=== PATIENT | male | born 1975 ===

== ENCOUNTER 2017-05-10 16:37 | Emergency (ER) | payer OTHER ==
--- NOTE | 2017-05-10 17:02 | C.PDOC ---
History Of Present Illness 41 y/o M p/w L knee pain suffered prior to arrival. Patient states he was kneeling down next to his car working on his tire and when he got up, he felt a tension in his L knee and now he can not straighten his L knee due to pain. He denies any direct trauma. He states he had meniscal surgery in this knee in the past and it was never the same since. He hears and feels clicks in the knee daily. Denies numbness, weakness. Time Seen by Provider: 05/10/17 16:56 Chief Complaint (Nursing): Lower Extremity Problem/Injury Past Medical History Vital Signs: Last Vital Signs Temp 98.3 F 05/10/17 16:41 Pulse 74 05/10/17 16:41 Resp 20 05/10/17 16:41 BP 113/73 05/10/17 16:41 Pulse Ox 97 05/10/17 17:02 Family History: States: No Known Family Hx Review Of Systems Except As Marked, All Systems Reviewed And Found Negative. Constitutional: Negative for: Fever Respiratory: Negative for: Shortness of Breath Physical Exam - Physical Exam Additional Physical Exam Comments: Gen: No acute distress. Extremities: L knee with lateral and medial tenderness with joint effusion. Able to flex fully. Able to extend with pain. Straight leg raise intact. Negative anterior/posterio drawer tests. No tib/fib or femoral tenderness. Sensation to light touch intact in leg. ED Course And Treatment O2 Sat by Pulse Oximetry: 97 Medical Decision Making Medical Decision Making: Toradol for pain. XR. XR no acute fx or dislocation. Knee brace, crutches. F/u Ortho, return to ER for worsening pain, numbness, or any other problem. Disposition - Disposition Referrals: Elijah Linder III, MD [Staff Provider] - Disposition: HOME/ ROUTINE Disposition Time: 17:53 Condition: STABLE Prescriptions: Ibuprofen [Motrin] 600 mg PO Q6 #25 tab Instructions: Knee Pain (ED) Forms: [facility] (Liberian) - Clinical Impression Clinical Impression: Knee pain
[2017-05-10 18:22] VITALS: BP 136/77; PULSE 61; RESP 18; TEMP 97.8; O2SAT 99
--- NOTE | 2017-05-11 09:27 | RAD ---
PROCEDURE: Left Knee Radiographs. HISTORY: Pain. COMPARISON: None. FINDINGS: BONES: There is no acute fracture or definite worrisome lytic or blastic change identified. A few small radiodensities identified in the proximal diametaphysis of the left tibia which may represent a small enchondroma. Pain localized to this region consider follow-up nuclear bone scan or MRI for greater characterization. JOINTS: No dislocation or subluxation. JOINT EFFUSION: None. OTHER FINDINGS: None. IMPRESSION: No acute or fracture dislocation. Probable small enchondroma or even limited bone infarction proximal left tibia. If pain localized to this region follow-up nuclear bone scan or MRI is advised for further characterization.
== END 2017-05-10 18:25 | disposition home or self-care (01) ==
LOC: C.ER 16:37
DX: M25.562 Pain in left knee (principal)
CPT/HCPCS: 73562; 96372; 99285; J1885